=== PATIENT | male | born 2000 | race African-American/Black ===

== ENCOUNTER 2019-03-22 18:22 | Emergency (ER) | payer OTHER ==
[2019-03-22 18:31] VITALS: BP 94/52; PULSE 59; RESP 16; TEMP 97.5
--- NOTE | 2019-03-22 18:41 | ED ---
Lower Extremity Injury HPI - General Chief Complaint: Extremity Injury, Lower Stated Complaint: Knee pain Time Seen by Provider: 03/22/19 18:33 Source: patient Mode of arrival: ambulatory Limitations: no limitations - History of Present Illness Initial Comments: Patient is a 18-year-old male presenting to emergency Department with complaints of left knee pain for 1 month. Patient states he is from [place] and plays basketball. Patient states about a month ago he did have a trip and fall and landed onto both of his knees. Patient states since the fall isn't having left knee pain. He states that mainly only hurts when he slammed basketball. He denies any swelling or redness to the area. He denies any previous history of surgeries or trauma to the knee. He has no other complaints at this time. Upon arrival to the ER, his vital signs are stable. - Related Data Allergies Allergy/AdvReac Type Severity Reaction Status Date / Time No Known Allergies Allergy Verified 03/22/19 18:27 Review of Systems ROS Statement: Those systems with pertinent positive or pertinent negative responses have been documented in the HPI. ROS Other: All systems not noted in ROS Statement are negative. Past Medical History Past Medical History: No Reported History Past Surgical History: No Surgical Hx Reported, Orthopedic Surgery Past Psychological History: No Psychological Hx Reported Smoking Status: Never smoker Past Alcohol Use History: None Reported Past Drug Use History: None Reported General Exam - General Exam Comments Initial Comments: GENERAL: Well-appearing, well-nourished and in no acute distress. HEAD: Atraumatic, normocephalic. EYES: Pupils equal round and reactive to light, extraocular movements intact, sclera anicteric, conjunctiva are normal. ENT: Moist mucous membranes. NECK: Normal range of motion, supple without lymphadenopathy or JVD. LUNGS: Breath sounds clear to auscultation bilaterally and equal. No wheezes rales or rhonchi. HEART: Regular rate and rhythm without murmurs, rubs or gallops. EXTREMITIES: Mild pain to palpation of the left patellar tendon, patient has full range of motion. There is no swelling. Negative anterior drawer, valgus/varus stress, Aren's, posterior drawer. Patient has 5 out of 5 strength lower extremities, sensation is equal bilateral. Neurovascular intact. NEUROLOGICAL: Normal speech, normal gait. PSYCH: Normal mood, normal affect. SKIN: Warm, Dry, normal turgor, no rashes or lesions noted. Limitations: no limitations Course Vital Signs 03/22/19 18:28 Temperature 97.5 F L Pulse Rate 59 L Respiratory 16 Rate Blood Pressure 94/52 O2 Sat by Pulse 100 Oximetry Medical Decision Making - Medical Decision Making Patient is a 18-year-old male presenting with left knee pain 1 month. Mainly her to explain bascule. No other previous injuries or surgeries. Exam is unremarkable. Patient has pain over the patellar tendon. He is requesting an x-ray. X-ray shows some mild spurring in the inferior patella, no other fractures dislocations. No joint effusion. I discussed these findings with the patient. We discussed that this is most likely tendinitis of the patellar tendon. Is just doing icing as well as Motrin for pain relief and a trial of the patellar tendon band. He is stable for discharge at this time. He will follow up with orthopedic doctor if symptoms persist. He is in agreement with this plan care. Disposition Clinical Impression: Left knee pain, Patellar tendinitis, left knee Disposition: HOME SELF-CARE Condition: Stable Instructions (If sedation given, give patient instructions): Patellar Tendinitis (ED) Additional Instructions: Please return to the Emergency Department if symptoms worsen or any other concerns. Use ice and Motrin as discussed. A trial of a patellar tendon band. Follow up with orthopedics if symptoms persist. Is patient prescribed a controlled substance at d/c from ED?: No Referrals: Nonstaff,Physician [Primary Care Provider] - 1-2 days Tod Matute MD [STAFF PHYSICIAN] - 1-2 days
--- NOTE | 2019-03-22 18:54 | XR ---
EXAMINATION TYPE: XR knee complete LT DATE OF EXAM: 03/22/2019 COMPARISON: NONE HISTORY: Knee pain TECHNIQUE: 3 views FINDINGS: There is some spurring on the inferior patella. I see no fracture nor dislocation. There is no sign of joint effusion. Joint spaces are fairly normal. IMPRESSION: Negative left knee exam.
== END 2019-03-22 19:10 | disposition home or self-care (01) ==
LOC: EC 18:22
DX: M76.52 Patellar tendinitis, left knee (principal); Z91.81 History of falling
CPT/HCPCS: 99283